=== PATIENT | female | born 1930 | race Caucasian/White ===

== ENCOUNTER 2020-09-10 17:55 | Emergency (ER) | payer MEDICARE | END 2020-09-10 19:00 | disposition home or self-care (01) | LOC: NAV ERS 17:55 | DX: S93.602A Unspecified sprain of left foot, initial encounter (principal); I10 Essential (primary) hypertension; Z79.899 Other long term (current) drug therapy; X50.1XXA Overexertion from prolonged static or awkward postures, initial encounter ==